=== PATIENT | female | born 1945 ===

== ENCOUNTER 2016-02-17 13:51 | Outpatient (RCR) | payer OTHER ==
[~2016-02-17 13:51] MED LIST: AMLODIPINE BESY10 MG ORAL; ASPIRIN81 MG ORAL; ATORVASTATIN CA40 MG ORAL; CLOTRIMAZOLE15 GM TOPIC; MULTIVITAMINS1 EAC2 ORAL; QUINAPRIL HCL20 MG PO
== END 2016-03-16 | disposition home or self-care (01) ==
LOC: PTY 13:51
DX: Q68.2 Congenital deformity of knee (principal); M25.562 Pain in left knee; S46.012D Strain of muscle(s) and tendon(s) of the rotator cuff of left shoulder, subsequent encounter; X58.XXXD Exposure to other specified factors, subsequent encounter; Z88.2 Allergy status to sulfonamides
CPT/HCPCS: 97110; 97140; G0283

== ENCOUNTER 2016-03-17 15:23 | Outpatient (RCR) | payer OTHER | END 2016-04-13 | disposition home or self-care (01) | LOC: PTY 15:23 | DX: S46.012D Strain of muscle(s) and tendon(s) of the rotator cuff of left shoulder, subsequent encounter (principal) | CPT/HCPCS: 97110; 97140; G0283 ==

== ENCOUNTER 2016-04-21 13:00 | Outpatient (RCR) | payer OTHER | END 2016-05-14 | disposition home or self-care (01) | LOC: PTY 13:00 | DX: S46.012D Strain of muscle(s) and tendon(s) of the rotator cuff of left shoulder, subsequent encounter (principal) | CPT/HCPCS: 97110; 97140; G0283 ==